=== PATIENT | female | born 1965 | race Caucasian/White ===

== ENCOUNTER 2025-04-24 21:03 | Emergency (ER) | payer OTHER, SELFPAY ==
[2025-04-24 21:05] VITALS: BP 145/91
[2025-04-24 21:44] LABS: Urine Albumin Negative (Neg - Trace); Urine Bilirubin Negative (Negative); Urine Character Clear (Clear); Urine Color Yellow; Urine Glucose Negative (Negative); Urine Ketone Negative (Negative); Urine Leukocyte Negative (Negative); Urine Nitrite Negative (Negative); Urine Occult Blood Negative (Negative); Urine Specific Gravity 1.015 (<1.030); Urine Urobilinogen Negative (Neg - 1+)
[2025-04-24 21:50] LABS: % Basophils 0.6 % (0-2); % Eosinophils 1.2 % (0-6); % Immature Granulocytes 0.2 % (0-0.5); % Lymphocytes 32.2 % (20.5-51.1); % Neutrophils 57.8 % (42.2-75.2); Absolute Eosinophils 0.1 10^3/uL (0-0.7); Absolute Lymphocytes 1.7 10^3/uL (1.2-3.4); Absolute Monocytes 0.4 10^3/uL (0.1-0.6); Hematocrit 38.5 % (37.0-47.0); Hemoglobin 13.5 g/dL (12.0-16.0); Mean Corp Hgb Conc. 35.1 g/dL (33.0-37.0); Mean Corpuscular Hgb 31.8 pg (27.0-31.0); Mean Corpuscular Volume 90.6 fL (81.0-99.0); Mean Platelet Volume 10.4 fL (7.4-10.4); Nucleated Red Blood Cells % 0 %; Platelet Count 139 10^3/uL (130-400); Red Blood Cell Count 4.25 10^6/uL (4.20-5.40); White Blood Cell Count 5.1 10^3/uL (4.8-10.8)
[2025-04-24 21:53] LABS: ALT (SGPT) 29 U/L (0-35); AST (SGOT) 33 U/L (14-36); Albumin 4.2 g/dl (3.5-5.0); Alkaline Phosphatase 71 U/L (38-126); Blood Urea Nitrogen 15 mg/dl (7-17); Calcium 9.4 mg/dl (8.4-10.2); Carbon Dioxide 26 mmol/L (22-30); Chloride 109 mmol/L (98-107); Glucose 90 mg/dl (70-99); Potassium 4.4 mmol/L (3.5-5.1); Sodium 139 mmol/L (135-145); Total Bilirubin 0.5 mg/dl (0.2-1.3); Total Protein 6.3 g/dl (6.3-8.2); eGFR > 60.00
[2025-04-24 23:49] VITALS: BP 132/86; BMI 25.8
--- NOTE | 2025-04-25 01:03 | ED.GENMED ---
History of Present Illness
<MARGARITA Quiros - Last Filed: 04/25/25 01:10>
General
Chief Complaint: Abdominal Pain
Source: patient
Exam Limitations: none
Time Seen by Provider: 04/25/25 00:24
History of Present Illness
History of Present Illness:
Pt is a 60 yo F with a PMH of diabetes, breast CA, kidney CA, anxiety, s/p total hysterectomy, cholecystectomy, partial R nephrectomy, and gastric bypass who presents to the ER c/o RLQ pain radiating to the R low back and increased belching x 10
hours. Patient states that around 3 pm today she noticed a deep RLQ pain, she states it feels 'deeper' than a muscular pain, but does note she was more active than usual this week. She notes also that at one point the pain radiated up into her right
shoulder and scapular region, but now is in the RLQ wrapping around to the right low back. She also admits to increased flatulence. She had a normal BM this morning, says she attempted to go again later today thinking perhaps this was related to her
pain, but did not pass another stool. She denies any urinary symptoms, nausea, vomiting, or any other associated symptoms.
Past History
<Katie Greer DO - Last Filed: 04/25/25 03:38>
Past History
ED Past Medical History: Cancer (Breast cancer, renal cell carcinoma) and NIDDM
ED Past Surgical History: Bowel resection (Gastric bypass 2021), Cholecystectomy, Gynecological (Total hysterectomy 2011; bilateral mastectomy 2010), Tonsilectomy and Urological (Right partial nephrectomy 2012)
Social History
Tobacco: Non-smoker
Alcohol: None
Personal: Single
Living: alone
Employment: Not employed
Family History
Family History: Other (Noncontributory)
Review of Systems
<MARGARITA Quiros - Last Filed: 04/25/25 01:10>
Review of Systems
All Other Systems: ROS reviewed and negative except as documented in HPI and ROS
Phy Exam
<MARGARITA Quiros - Last Filed: 04/25/25 01:10>
General Physical Exam
General Presentation: well appearing and no apparent distress
General age: appears stated age
General Skin: warm
General Habitus: normal
General Mental: alert
Cardiovascular Exam
Cardiovascular Exam: regular rate/rhythm
Pulmonary Exam
Pulmonary Exam: lungs clear
Gastrointestinal Exam
Gastrointestinal Exam: normal bowel sounds and soft
Palpation: left upper quadrant: No tenderness, left lower quadrant: No tenderness, right upper quadrant: No tenderness and right lower quadrant: Moderate tenderness
Course
<Freida Ward GIANNA - Last Filed: 04/25/25 01:10>
Orders/Labs/Results
Orders:
Orders
04/24/25 21:24
Complete Blood Count/With Diff Urgent
Comprehensive Metabolic Panel Urgent
Urinalysis Reflex To Culture Urgent
Date Specimen was Collected: 04/24/25
Time Specimen was Collected: 21:14
04/25/25 01:12
CT Abd/pelvis W Iv Cont Urgent
Comment:
Reason For Exam: right sided abd pain. bloating. x 1 day
04/25/25 02:38
Dicyclomine HCl [Bentyl] 20 mg IM NOW STA
Abnormal Lab Results
04/24/25
21:24
MCH 31.8 H pg
(27.0-31.0)
Chloride 109 H mmol/L
(98-107)
04/24/25 21:24
04/24/25 21:24
Vital Signs
Initial and Last Documented VS:
Initial Vital Signs
Temp Pulse Resp BP Pulse Ox
97.7 F 74 19 145/91 99
04/24/25 21:05 04/24/25 21:05 04/24/25 21:05 04/24/25 21:05 04/24/25 21:05
Last Documented Vital Signs
Temp Pulse Resp BP Pulse Ox
97.7 F 65 16 132/86 100
04/24/25 21:05 04/24/25 23:49 04/24/25 23:49 04/24/25 23:49 04/24/25 23:49
<Katie Greer, DO - Last Filed: 04/25/25 03:38>
Orders/Labs/Results
Orders:
Orders
04/24/25 21:24
Complete Blood Count/With Diff Urgent
Comprehensive Metabolic Panel Urgent
Urinalysis Reflex To Culture Urgent
Date Specimen was Collected: 04/24/25
Time Specimen was Collected: 21:14
04/25/25 01:12
CT Abd/pelvis W Iv Cont Urgent
Comment:
Reason For Exam: right sided abd pain. bloating. x 1 day
04/25/25 02:38
Dicyclomine HCl [Bentyl] 20 mg IM NOW STA
Abnormal Lab Results
04/24/25
21:24
MCH 31.8 H pg
(27.0-31.0)
Chloride 109 H mmol/L
(98-107)
04/24/25 21:24
04/24/25 21:24
Vital Signs
Initial and Last Documented VS:
Initial Vital Signs
Temp Pulse Resp BP Pulse Ox
97.7 F 74 19 145/91 99
04/24/25 21:05 04/24/25 21:05 04/24/25 21:05 04/24/25 21:05 04/24/25 21:05
Last Documented Vital Signs
Temp Pulse Resp BP Pulse Ox
97.7 F 65 16 132/86 100
04/24/25 21:05 04/24/25 23:49 04/24/25 23:49 04/24/25 23:49 04/24/25 23:49
<Katie Greer DO - Last Filed: 04/25/25 03:38>
*Radiology
Radiology exam reviewed: radiology read reviewed (CT abdomen pelvis shows no acute findings within the abdomen. No bowel obstruction. No free air. No evidence of diverticulitis nor colitis.)
*Pulse Oximetry
Patient hypoxic: no
*Critical Care Note
Total Time (30-74mins, 75-104mins- exclusive of procedures): Not Applicable
ED Attending Note
<MARGARITA Quiros - Last Filed: 04/25/25 01:10>
-
Portions of this chart may have been created with voice recognition software.� Occasional wrong word or��sound alike� substitutions may have occurred due to the inherent limitations of voice recognition software.
<Katie Greer DO - Last Filed: 04/25/25 03:38>
ED Attending Note
Patient seen and examined by attending physician: Yes
I performed the substantive portion of visit, reviewed & personally made and approve the management plan that is documented in note by myself or ROSENDO.: Yes
ED Attending Note:
This is a 60-year-old woman with history of breast as well as renal cell carcinoma. Follows regularly with oncologist with no history of recurrence.
Along with bilateral mastectomy and right partial nephrectomy she has history of total hysterectomy, cholecystectomy and gastric bypass.
She presents with right lower quadrant pain that began around 3 PM today, somewhat abrupt in nature and initially radiated to her right mid to right low back. Right lower quadrant pain has been somewhat persistent now right mid to right lower
abdomen accompanied with a sense of bloating, intermittent belching as well as frequent passage of gas.
No history of similar episodes of pain in the past. She denies nausea but admits to moderate anorexia today. No fever no chills, no chest pain or cough no shortness of breath. No dysuria no urgency no hematuria. She has been passing gas but has
not passed a bowel movement today.
Her only daily medication is Mounjaro as well as multivitamins.
GENERAL: 60-year-old woman appears her stated age, bright and alert, pleasant, appears in no acute distress.
EYE: pupils equal. anicteric
NECK: Supple, nontender, no meningismus, no significant adenopathy.
ENT: oral mucosa is moist. TM clear b/l, nares patent.
CARDIAC: Regular rate and rhythm. no murmur.
LUNGS: Clear breath sounds bilaterally, no acute respiratory distress, no wheezes/rales/rhonchi
ABDOMEN: Soft, nondistended, mild tenderness right mid to right lower quadrant, mildly hyperactive bowel sounds, no r/g, no cvat.
NEUROLOGICAL: Alert and oriented x3, no focal neuro deficits. Gait is canela and steady.
SKIN: Warm and dry, normal color, skin intact. No rash.
MUSCULOSKELETAL: No C/C/E. peripheral pulses are full and equal b/l. No palpable tenderness.
PSYCH: Normal and appropriate interaction.
Concern for small bowel obstruction, kidney stone, bile duct stone, diverticulitis, colitis.
Labs and urinalysis are reassuring, within normal limits.
Patient has been offered pain medication which she declines.
Will check CT abdomen pelvis.
02:45
CAT scan shows no acute intra-abdominal findings.
Overall patient remains well in appearance.
Will trial an IM dose of Bentyl.
03:35
Patient resting comfortably. States she 'feels relaxed'
Abdomen is soft without appreciable tenderness.
Will discharge to home with prescription for Bentyl for as needed abdominal pain.
Recommend bland diet.
Prompt follow-up with PCP for recheck.
Return precautions discussed.
Discharge Plan
Departure
Patient Disposition: Home (Routine Discharge)
Date of Disposition: 04/25/25
Time of Disposition: 03:36
Patient with high blood pressure during this ER visit?: No
Condition: Good
Discharge Problem:
Abdominal pain, acute, right lower quadrant
Instructions: Abdominal Pain
Prescriptions:
New
dicyclomine 20 mg tablet
20 mg PO QID PRN (Reason: abdominal pain) Qty: 20 0RF
Referrals:
Romelia LEARY [Other]
Interventions
Interventions:
*Risk Screen - Suicide Last Done: 04/24/25 21:05
*General Assessment Last Done: 04/24/25 21:05
*Neglect/Abuse Screening Last Done: 04/24/25 21:05
*ED COVID-19 Vaccine History Last Done: 04/24/25 21:05
OS-Zzmkrc-Cbwftjwmgc Assessment Last Done: 04/24/25 23:49
Discharge Date and Time
Print Language: MAORI
[2025-04-25] MEDS: BENTYL 20 MG IM (02:45)
--- NOTE | 2025-04-25 03:20 | EDRN ---
Patient states feeling better at this time
== END 2025-04-25 03:53 | disposition home or self-care (01) ==
LOC: EMR 21:03
PROVIDERS: Emergency Medicine; EMERGENCY PHYSICIAN Emergency Medicine
DX: R10.31 Right lower quadrant pain (principal); R14.0 Abdominal distension (gaseous); R14.3 Flatulence; M54.50 Low back pain, unspecified; E11.9 Type 2 diabetes mellitus without complications; F41.9 Anxiety disorder, unspecified; Z79.899 Other long term (current) drug therapy; Z85.528 Personal history of other malignant neoplasm of kidney; Z85.3 Personal history of malignant neoplasm of breast; Z98.0 Intestinal bypass and anastomosis status; Z98.84 Bariatric surgery status; Z90.49 Acquired absence of other specified parts of digestive tract; Z90.13 Acquired absence of bilateral breasts and nipples; Z90.5 Acquired absence of kidney; Z90.710 Acquired absence of both cervix and uterus; Z88.6 Allergy status to analgesic agent; Z88.5 Allergy status to narcotic agent
CPT/HCPCS: 99284; 96372; 74177; 80053; 81003; 85025; Q9967